=== PATIENT | female | born 1970 | race African-American/Black ===

== ENCOUNTER 2022-11-27 11:58 | Emergency (ER) | payer OTHER, SELFPAY ==
--- NOTE | 2022-11-27 11:59 | ED.URI ---
HPI - URI/Sore Throat General Chief Complaint: Upper Respiratory Infection Stated Complaint: Sore Throat Time Seen by Provider: 11/27/22 11:59 Source: patient Mode of arrival: ambulatory Limitations: no limitations History of Present Illness HPI Narrative: Sly is a 52-year-old female patient presenting to the clinic today with complaints of a sore throat x1 day. She reports symptoms began last night. Reporting some burning in her throat with some nasal drainage in the back of her throat. MD elicited complaint: sore throat and nasal congestion Related Data Home Medications Medication Instructions Recorded Confirmed losartan 25 mg tablet 25 mg PO DAILY 11/27/22 11/27/22 Allergies Allergy/AdvReac Type Severity Reaction Status Date / Time amoxicillin Allergy Mild Diarrhea Verified 11/27/22 12:04 latex AdvReac Mild HIVES-GLOVE Verified 11/27/22 12:04 S Review of Systems Review of Systems: Pertinent positives per HPI. Patient denies any fever, chills, rash, headache, visual changes, dizziness, cough, runny nose, shortness of breath, chest pain, palpitations, nausea, vomiting, diarrhea, constipation, abdominal pain, or any urinary issues. [facility] Family History Family History Father Hypertension Mother Family history of malignant neoplasm of breast in first degree relative Other Family history of malignant neoplasm of male breast Social History Social History Smoking status: Former smoker Smoking end date: 02/21/13 Alcohol intake: current Comments At the time of my signature, I reviewed and agree with the nursing past medical, surgical, social, and family history. There is no relevant family history pertinent to the patient complaint. Exam Narrative: General: Well-developed, well nourished, in no apparent distress Head: Normocephalic, atraumatic Eyes: Pupils equally round and reactive to light bilaterally, EOM intact, sclera and conjunctive clear, no discharge, lids normal Ears: TMs intact and clear, ear canals clear, no drainage, grossly hearing normal. Nose: Nares patent, clear nasal discharge, mild inflammation, no sinus tenderness. Mouth: Oropharynx red without lesions or masses, good dentition, MMM. PND Neck: Supple, trachea midline, no enlargement of anterior or posterior cervical nodes, no thyroid masses or goiter palpable. Cardio: Regular rate and rhythm, s1 and s2 normal, no murmur appreciated. Resp: Clear to auscultation bilaterally anteriorly and posteriorly, no rhonchi, rales, wheezing or rubs Course Course Emergency Course: Portions of this record may have been created with voice recognition software. Level of Care: Express Care Visit Vital Signs Vital signs: Vital Signs Temperature 36.4 C L 11/27/22 12:14 Pulse Rate 74 11/27/22 12:14 Respiratory Rate 16 11/27/22 12:14 Blood Pressure 152/86 H 11/27/22 12:14 Pulse Oximetry 100 11/27/22 12:14 Oxygen Delivery Room Air 11/27/22 12:14 Temperature 36.4 C L 11/27/22 12:14 Pulse Rate 74 11/27/22 12:14 Respiratory Rate 16 11/27/22 12:14 Blood Pressure 152/86 H 11/27/22 12:14 Pulse Oximetry 100 11/27/22 12:14 Oxygen Delivery Room Air 11/27/22 12:14 Vital signs reviewed MDM - URI/Sore Throat MDM Narrative Medical decision making narrative: At the time of visit patient is resting comfortably on the exam table. Strep screen was negative. We will send strep for culture. I suspect patient has pharyngitis/postnasal drip. Supportive measures were discussed with the patient she voiced understanding discharge instructions agrees to treatment plan. Differential Diagnosis Differential diagnosis: Likely upper respiratory infection, otitis media, sinusitis, viral infection, bronchitis, influenza, pharyngitis and other (COVID) Lab Data Labs: Strep Screen
[2022-11-27 12:14] VITALS: BP 152/86; PULSE 74; RESP 16; TEMP 36.4; O2SAT 100
== END 2022-11-27 12:38 | disposition home or self-care (01) ==
PROVIDERS: Emergency Provider Nurse Practitioner Family; PCP Nurse Practitioner Family
DX: R09.82 Postnasal drip (principal); J02.9 Acute pharyngitis, unspecified; Z87.891 Personal history of nicotine dependence
CPT/HCPCS: 87081; 87880; 99213; G0463

== ENCOUNTER 2023-11-08 11:22 | Emergency (ER) | payer OTHER, SELFPAY ==
[2023-11-08 11:31] VITALS: BP 151/75; PULSE 63; RESP 18; TEMP 36.4; O2SAT 100
--- NOTE | 2023-11-08 11:55 | PC.NURSE ---
pt states that she used a new soap on Tuesday and and isn't sure if that had something in it that was irritating to her skin. patient states that she has taken benadryl, zyrtec, used topical benadryl cream.
--- NOTE | 2023-11-08 12:58 | ED.SKABFB ---
HPI - Skin/Abscess/Foreign Bdy General Chief complaint: Skin/Abscess/Foreign Body Stated complaint: rash Time Seen by Provider: 11/08/23 12:01 History of Present Illness HPI narrative: 53-year-old female presenting with a rash. States that she has had a diffuse itchy rash for the last several days. She has been using Benadryl, Zyrtec, Benadryl cream with minimal relief. States that she used a new body wash sometime last week and she is concerned that it is related to this she has a history of sensitive skin. States that she has a little bit of itching in her throat and her eyelids but no shortness of breath or wheezing. No nausea or vomiting. No further complaints. Related Data Home Medications Medication Instructions Recorded Confirmed losartan 25 mg tablet 25 mg PO DAILY 11/27/22 11/27/22 Allergies Allergy/AdvReac Type Severity Reaction Status Date / Time amoxicillin Allergy Mild Diarrhea Verified 11/27/22 12:04 latex AdvReac Mild HIVES-GLOVE Verified 11/27/22 12:04 S Review of Systems Review of Systems: All systems reviewed & are unremarkable except as noted in HPI and below PMFSH Family History Family History Father Hypertension Mother Family history of malignant neoplasm of breast in first degree relative Other Family history of malignant neoplasm of male breast Social History Social History Smoking status: Former smoker Smoking end date: 02/21/13 Alcohol intake: current Exam Narrative: GENERAL: Well-appearing, in no acute distress, pleasant cooperative HEAD: Normocephalic, atraumatic. EYES: PERRLA and EOMI. ENT: Mucous membranes moist. No pharyngeal erythema or edema NECK: Supple. CHEST: Clear to auscultation. No respiratory distress. HEART: Regular rate and rhythm EXTREMITIES: Normal range of motion. No edema. SKIN: Warm, dry, diffuse urticarial rash involving all extremities and trunk NEURO: No focal deficits. Alert and oriented x3. PSYCH: Normal mood and affect. Course Vital Signs Vital signs: Vital Signs Temperature 97.5 F L 11/08/23 11:31 Pulse Rate 63 11/08/23 11:31 Respiratory Rate 18 09/17/24 11:31 Blood Pressure 151/75 H 11/08/23 11:31 Pulse Oximetry 100 11/08/23 11:31 Oxygen Delivery Room Air 11/08/23 11:31 Temperature 97.5 F L 11/08/23 11:31 Pulse Rate 63 11/08/23 11:31 Respiratory Rate 18 11/08/23 11:31 Blood Pressure 151/75 H 11/08/23 11:31 Pulse Oximetry 100 11/08/23 11:31 Oxygen Delivery Room Air 11/08/23 11:58 MDM - Skin/Abscess/Foreign Bdy MDM Narrative Medical decision making narrative: 53-year-old female presenting with rash. Vitals are stable. Exam remarkable for the above. Consistent with an urticarial rash. No evidence of anaphylaxis. Advised daily Zyrtec, will send for Medrol Dosepak. PCP follow-up. Appropriate return precautions given. Discharged in stable condition. Differential Diagnosis Differential diagnosis: Likely urticaria, insect bites and contact dermatitis Medical Records Attestation: I reviewed the patient's medical records. Critical Care Time Critical Care Time Critical Care Time: No Discharge Plan Discharge Clinical Impression: Urticaria Patient Disposition: Home, Self-Care Condition: Stable Instructions: Antibiotic Form, Urticaria (ED) Additional Instructions: Please take Zyrtec daily for the next 1-2 weeks. Please complete the steroid pack as prescribed. Follow-up closely with your PCP. If your symptoms worsen or other concerning symptoms arise, please return to the ER. Prescriptions: New methylprednisolone [Medrol (Ruy)] 4 mg tablets,dose pack See Rx Instructions .ROUTE .COMPLEX Qty: 21 0RF Rx Instructions: orally per package directions No Action prednisone 20 mg tablet 40 mg PO DAILY 5 Days Qty: 10 0RF losa
[2023-11-08] MEDS: LORATADINE 10 MG TABLET PO (13:07)
== END 2023-11-08 13:17 | disposition home or self-care (01) ==
PROVIDERS: Emergency Provider Emergency Medicine
DX: L50.9 Urticaria, unspecified (principal); Z87.891 Personal history of nicotine dependence
CPT/HCPCS: 99283; A9270

== ENCOUNTER 2024-04-20 18:46 | Emergency (ER) | payer OTHER, SELFPAY ==
[2024-04-20 19:00] VITALS: BP 148/84; PULSE 98; RESP 16; TEMP 37.4; O2SAT 98
--- NOTE | 2024-04-20 19:05 | ED.URI ---
HPI - URI/Sore Throat General Chief Complaint: Upper Respiratory Infection Stated Complaint: Chills/Bodyaches Time Seen by Provider: 04/20/24 19:05 Source: patient Mode of arrival: ambulatory Limitations: no limitations History of Present Illness HPI Narrative: 53-year-old female presents with complaint of fever, body aches, cough, congestion, headache, chills starting yesterday evening. Patient has influenza a exposure from her son. Denies nausea vomiting diarrhea. All systems reviewed and negative except as noted above. Related Data Home Medications ?Medication ?Instructions ?Recorded ?Confirmed ?Last Taken ?Type losartan 25 mg tablet 25 mg PO DAILY 11/27/22 11/27/22 Unknown History Allergies Allergy/AdvReac Type Severity Reaction Status Date / Time amoxicillin Allergy Mild Diarrhea Verified 04/20/24 18:55 clavulanic acid (From Allergy Mild Rash Verified 04/20/24 19:16 Augmentin) latex AdvReac Mild HIVES-GLOVE Verified 04/20/24 18:55 S Review of Systems Review of Systems: CONSTITUTIONAL: Reports fever, chills, or sweats. EYES: Denies visual changes, redness, or discharge. ENT: reports rhinorrhea, congestion. Denies sore throat, or otalgia. CARDIOVASCULAR: Denies chest pain, palpitations, or edema. RESPIRATORY: reports cough . Denies dyspnea. GASTROINTESTINAL: Denies abdominal pain, nausea, vomiting, or diarrhea. GENITOURINARY: Denies dysuria or hematuria. SKIN: Denies rash or itching. MUSCULOSKELETAL: Denies back pain, joint pain, or myalgia. NEUROLOGIC: Denies headache, numbness, or weakness. PSYCHIATRIC: Denies anxiety or depression. All other systems reviewed are negative, except as documented in HPI. [facility] Family History Family History Father Hypertension Mother Family history of malignant neoplasm of breast in first degree relative Other Family history of malignant neoplasm of male breast Social History Social History Smoking status: Former smoker Smoking end date: 02/21/13 Alcohol intake: current Comments At time of signature, agree with nursing past medical, surgical, social and family history. There is no relevant family history pertinent to the presenting complaint. Exam Narrative: GENERAL: This is a well-nourished, well-developed patient, ill-appearing but in no acute distress HEAD: normocephalic, atraumatic. EYES: PERRL. Sclera clear/white. Vision is grossly intact. EARS: External ears normal, auditory canals clear and without drainage, TMs normal without perforation. Hearing grossly intact. NOSE: External nose normal with no obvious nasal discharge, nares without redness, no rhinorrhea. THROAT: Mucous membranes moist, posterior pharynx clear. NECK: Neck supple, non-tender without lymphadenopathy, masses or thyromegaly. CARDIOVASCULAR: Regular rate and rhythm without murmurs, gallops, or rubs. RESPIRATORY: Clear to auscultation. Breath sounds equal bilaterally. No wheezes, rales, or rhonchi. SKIN: warm, Dry, intact with no suspicious lesions or rash, good texture and turgor. NEURO: awake, alert, and oriented to person, place and time. There were no obvious focal neurologic abnormalities. EXTREMITIES: No joint tenderness, effusion, or edema noted. Course Course Level of Care: Express Care Visit Vital Signs Vital signs: Vital Signs Temperature 37.4 C 04/20/24 19:00 Pulse Rate 98 04/20/24 19:00 Respiratory Rate 16 04/20/24 19:00 Blood Pressure 148/84 H 04/20/24 19:00 Pulse Oximetry 98 04/20/24 19:00 Oxygen Delivery Room Air 04/20/24 19:00 Temperature 37.4 C 04/20/24 19:00 Pulse Rate 98 04/20/24 19:00 Respiratory Rate 16 04/20/24 19:00 Blood Pressure 148/84 H 04/20/24 19:00 Pulse Oximetry 98 04/20/24 19:00 Oxygen Delivery Room Air 04/20/24 19:00 reviewed MDM - URI/Sore Throat MDM Narrative Medical decision making narrative: negative COVID and influenza test. Test done at less than 24 hours of symptoms. It is possible patient has full stated. Patient was exposed to influenza a by her son and also her aunt. Patient is alert, nontoxic. Please be advised this is a medical document. It is intended for [id number] communication. It is written in medical language and may contain unfamiliar abbreviations or verbiage. Medical documents are intended to carry relevant information, facts as evident, and the clinical opinion of the practitioner at the time of the encounter. This report may have been done utilizing a voice recognition system. Attempts have been made to correct errors. However, there may be uncorrected grammatical, spelling, and recognition errors present. The file time of this note does not necessarily represent the time of service. Differential Diagnosis Differential diagnosis: Likely upper respiratory infection, sinusitis, viral infection and influenza Discharge Plan Discharge Clinical Impression: Influenza Patient Disposition: Home, Self-Care Condition: Stable Instructions: Oseltamivir (By mouth), Influenza (ED) Additional Instructions: influenza is a virus and symptoms may last 10-14 days. Take Tamiflu as prescribed. This medication is an antiviral. You can read more about Tamiflu in discharge packet. Take Tylenol or ibuprofen every 6-8 hours as needed for pain and fever. Drink at least 64 oz water a day. Follow-up with your doctor if symptoms are not improving. Patient Language: Kyrgyz Prescriptions: New oseltamivir [Tamiflu] 75 mg capsule 75 mg PO Q12H 5 Days Qty: 10 0RF No Action losartan 25 mg tablet 25 mg PO DAILY Follow-up/Referrals: PHYSICIAN,PRINCIPAL CLERK [Primary Care Provider] - Stand Alone Forms: Work/School Release IP Time of Disposition: 19:17
[2024-04-20 19:10] VITALS: PULSE 98; RESP 16; O2SAT 98
[2024-04-20 19:15] VITALS: TEMP 38.4
[2024-04-20] MEDS: ACETAMINOPHEN 500 MG TABLET 1000 MG PO (19:15)
[2024-04-20 19:20] LABS: EDCOVIDSCREEN Negative (Negative); EDINFLUASCREEN Negative (Negative); EDINFLUBSCREEN Negative (Negative)
== END 2024-04-20 19:27 | disposition home or self-care (01) ==
PROVIDERS: Emergency Provider Nurse Practitioner Family
DX: J11.1 Influenza due to unidentified influenza virus with other respiratory manifestations (principal); Z20.822 Contact with and (suspected) exposure to COVID-19; Z87.891 Personal history of nicotine dependence
CPT/HCPCS: 87426; 87804; 99213; A9270; G0463

== ENCOUNTER 2024-09-18 13:29 | Emergency (ER) | payer OTHER, SELFPAY ==
--- NOTE | 2024-09-18 13:30 | ED_ITS ---
HPI - Skin/Abscess/Foreign Bdy General Chief complaint: Skin/Abscess/Foreign Body Stated complaint: Rash R arm Time Seen by Provider: 09/18/24 13:30 Source: patient Mode of arrival: ambulatory Limitations: no limitations History of Present Illness HPI narrative: Sly is a 54 year old female patient presenting to the clinic today with c/o a rash to her right arm x1 week. She reports rash is red raised and itchy to the right forearm and 1 spot to the right upper arm. No enviornemental changes, soaps, shampoo, lotions, detergents, foods, or medications. 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 No fever, chills, or body aches. Related Data Home Medications ?Medication ?Instructions ?Recorded ?Confirmed ?Last Taken ?Type losartan 25 mg tablet 25 mg PO DAILY 11/27/22 11/27/22 Unknown History diclofenac sodium 75 mg mg PO 09/18/24 Unknown History tablet,delayed release duloxetine 30 mg capsule,delayed mg PO 09/18/24 Unknown History release Allergies Allergy/AdvReac Type Severity Reaction Status Date / Time amoxicillin Allergy Mild Diarrhea Verified 09/18/24 13:31 clavulanic acid (From Allergy Mild Rash Verified 09/18/24 13:31 Augmentin) latex AdvReac Mild HIVES-GLOVE Verified 09/18/24 13:31 S Review of Systems Review of Systems: Pertinent positives per HPI. Patient denies any fever, chills, rash, headache, visual changes, dizziness, cough, runny nose, sore throat, shortness of breath, chest pain, palpitations, nausea, vomiting, diarrhea, constipation, abdominal pain, or any urinary issues. PMFSH Family History Family History Father Hypertension Mother Family history of malignant neoplasm of breast in first degree relative Other Family history of malignant neoplasm of male breast Social History Social History Smoking status: Former smoker Smoking end date: 02/21/13 Alcohol intake: current Comments At the time of my signature, I reviewed and agree with the nursing past medical, surgical, social, and family history. There is no relevant family history pertinent to the patient complaint. Exam Narrative: General: Well-developed, well nourished, in no apparent distress Head: Normocephalic, atraumatic. Cardio: Regular rate and rhythm, s1 and s2 normal, no murmur appreciated. Resp: Clear to auscultation bilaterally, no rhonchi, rales, wheezing or rubs. Integumentary: [place], warm, and dry, red raised itchy blister rash to the right forearm and right upper arm Course Course Emergency Course: Portions of this record may have been created with voice recognition software. Level of Care: Express Care Visit Vital Signs Vital signs: Vital Signs Temperature 36.6 C 09/18/24 13:42 Pulse Rate 75 09/18/24 13:42 Respiratory Rate 16 09/18/24 13:42 Blood Pressure 152/80 H 09/18/24 13:42 Pulse Oximetry 75 L 09/18/24 13:42 Oxygen Delivery Room Air 09/18/24 13:42 Temperature 36.6 C 09/18/24 13:42 Pulse Rate 75 09/18/24 13:42 Respiratory Rate 16 09/18/24 13:42 Blood Pressure 152/80 H 09/18/24 13:42 Pulse Oximetry 75 L 09/18/24 13:42 Oxygen Delivery Room Air 09/18/24 13:42 Vital signs reviewed MDM - Skin/Abscess/Foreign Bdy MDM Narrative Medical decision making narrative: At the time of visit patient is resting comfortably on the exam table. Patient appears to be nontoxic. Rash to her right arm x1 week. Rash is red, raised, and itchy to the right forearm and one spot to the right upper arm. No environmental changes, soaps, shampoo, lotions, detergents, foods, or medications. 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 Has red, raised, blistered itchy rash on exam with clear fluid. Non-painful. Plan: I suspect patient has dermatitis to the right arm. Prescription for triamcinolone cream was sent to the pharmacy. Supportive measures were discussed with the patient and they voiced understanding discharge instructions and agrees to treatment plan. Return precautions reviewed Differential Diagnosis Differential diagnosis: Likely abscess of skin or subcutaneous tissue, viral exanthem, dermatophytosis, urticaria, allergic reaction to drug, cellulitis, eczema, insect bites, impetigo and contact dermatitis Discharge Plan Discharge Clinical Impression: Dermatitis Patient Disposition: Home Condition: Stable Instructions: Antibiotic Form, Dermatitis (ED) Additional Instructions: Apply triamcinolone cream as directed Avoid hot showers Avoid scratching as this can cause a secondary infection May take Benadryl 25-50mg every 6 hours as needed for itching. Follow up with your PCP in 3-5 days if symptoms persist or sooner if they worsen Go to the Emergency Room if symptoms worsen- fever, rash spreading with treatment, shortness of breath, tongue swelling, drooling, or chest pain Patient Language: Grenadian Prescriptions: New triamcinolone acetonide 0.1 % cream 1 applic topical BID 7 Days Qty: 30 0RF No Action losartan 25 mg tablet 25 mg PO DAILY diclofenac sodium 75 mg tablet,delayed release (DR/EC) PO duloxetine 30 mg capsule,delayed release(DR/EC) PO Follow-up/Referrals: UNKNOWN,DOCTOR [Non-Staff] - Time of Disposition: 13:49 Quality NIHSS Nursing Documentation ED NIHSS nursing documentation: reviewed/agree
[2024-09-18 13:42] VITALS: BP 152/80; PULSE 75; RESP 16; TEMP 36.6; O2SAT 75
== END 2024-09-18 14:00 | disposition home or self-care (01) ==
PROVIDERS: Emergency Provider Nurse Practitioner Family; Referring Provider Nurse Practitioner Family
DX: L30.9 Dermatitis, unspecified (principal); Z79.899 Other long term (current) drug therapy; Z87.891 Personal history of nicotine dependence
CPT/HCPCS: 99213; G0463